=== PATIENT | female | born 1975 | race Caucasian/White ===

== ENCOUNTER 2018-04-16 05:10 | Day surgery (SDC) | payer OTHER ==
[2018-04-04 11:53] VITALS: BMI 22.6
--- NOTE | 2018-04-09 07:39 | HP ---
History & Physical Update - Physical Physical: No Change - Assessment Assessment: No Change - Plan Plan: No Change
--- NOTE | 2018-04-16 13:06 | HP ---
History & Physical Update - History History: No Change - Physical Physical: No Change - Assessment Assessment: No Change - Plan Plan: No Change
[2018-04-16] MEDS ORDERED: ELECTROLYTE-148 SOLN 1,000 ML IV SCH (13:15)
[2018-04-16] MEDS ORDERED: IBUPROFEN 600 MG TABLET (FP) PO PRN (13:15)
[2018-04-16] MEDS ORDERED: IBUPROFEN 800 MG/8 ML IJ IVPB PRN (13:15)
[2018-04-16] MEDS ORDERED: ONDANSETRON 4 MG/2 ML VIAL IVPUSH PRN (13:15)
[2018-04-16] MEDS ORDERED: MIDAZOLAM HCL 2 MG/2 ML SINGLE DOSE VIAL ONE (13:18)
[2018-04-16] MEDS ORDERED: PROPOFOL 20 ML ONE (13:18)
[2018-04-16] MEDS ORDERED: DEXAMETHASONE SOD PHOSPHATE 4 MG/1 ML VIAL ONE (13:20)
[2018-04-16] MEDS ORDERED: LIDOCAINE HCL/PF 2% SDV 5ML VIAL ONE (13:20)
[2018-04-16] MEDS ORDERED: oxyCODONE HCL 5 MG TABLET PO PRN ×2 (14:25)
[2018-04-16] MEDS ORDERED: KETOROLAC TROMETHAMINE 30 MG/1 ML VIAL IVPUSH ONE (14:29)
[2018-04-16] MEDS ORDERED: LACTATED RINGERS SOLUTION 1,000 ML IV SCH (14:30)
--- NOTE | 2018-04-18 15:44 | PATH ---
Surgical Pathology Report Patient Name: RD DICKINSON [facility]. Rec. #: [id number] /Age/Gender: 1975 (Age: 42) / F Account: [id number] Location: [facility] Taken: 04/16/2018 Received: 04/17/2018 Reported: 04/18/2018 Physicians: Sang Trammell M.D. Specimen(s) Received A: ENDOMETRIAL CURETTINGS B: ENDOMETRIAL POLYP Clinical History Menorrhagia, endometrial polyp Final Diagnosis A. ENDOMETRIAL CURETTINGS: FRAGMENTS OF SECRETORY ENDOMETRIUM. ENDOCERVICAL TISSUE WITH SQUAMOUS METAPLASIA. B. ENDOMETRIAL POLYP, EXCISION: FRAGMENTS OF ENDOCERVICAL POLYP. Electronically Signed Jus Forbes M.D. Gross Description A. Received in formalin labeled "endometrial curettings," is a 4.0 x 3.8 x 0.5 cm aggregate of moise-brown soft tissue fragments admixed with blood clot. The formalin is filtered and the specimen is entirely submitted in 4 cassettes. B. Received in formalin labeled "endometrial polyp" is a 2.0 x 1.2 x 0.3 cm. moise, polypoid portion of soft tissue. Also received within the same container is a 1.8 x 1.8 x 0.3 cm. aggregate of miose soft tissue fragments. The specimen is entirely submitted in 2 cassettes as follows: 1-polyp; 2-separate soft tissue fragments. 04/17/2018 saudi04/17/2018
[2018-04-18 18:14] VITALS: BP 136/92; PULSE 94; TEMP 98.6
--- NOTE | 2018-05-30 14:52 | OP ---
DATE OF OPERATION: 04/16/2018 PREOPERATIVE DIAGNOSES: Menometrorrhagia, endometrial polyp. POSTOPERATIVE DIAGNOSES: Menometrorrhagia, endometrial polyp. PROCEDURE: Hysteroscopy, dilatation and curettage, and resection of endometrial polyp. SURGEON: Sang Trammell MD ANESTHESIA: General. ESTIMATED BLOOD LOSS: 50 mL DESCRIPTION OF OPERATION: Patient was taken to the operating room. Under adequate general anesthesia in dorsal lithotomy position, examination under anesthesia revealed the external genitalia to be normal. Vagina was normal. Cervix was clean. No lesion. Uterus was normal size and adnexa no masses were palpable. Then, with the weighted speculum in the vagina, anterior lip of the cervix was grasped with a single-tooth tenaculum. Cervix was gradually dilated with Hegar dilators. Then, the hysteroscope was introduced into the endocervical canal and advanced to the uterine cavity. Both cornual regions were identified. Endometrium appeared to be irregular. There was an endometrial polyp on the mid-uterine wall anteriorly. This polyp was resected, and then, endometrium was curetted. Patient tolerated the procedure well, left the OR in good condition. Monie [id number]
== END 2018-04-16 16:15 | disposition home or self-care (01) ==
LOC: JASU-SURG 05:10
PROVIDERS: ATTEND Obstetrics & Gynecology
PROC: 0UB98ZX Excision of Uterus, Via Natural or Artificial Opening Endoscopic, Diagnostic (ICD-10-PCS; principal; 2018-04-16 12:00)
PROC: 0UDB7ZX Extraction of Endometrium, Via Natural or Artificial Opening, Diagnostic (ICD-10-PCS; 2018-04-16 12:00)
DX: N92.1 Excessive and frequent menstruation with irregular cycle (principal); N84.0 Polyp of corpus uteri
CPT/HCPCS: 84703; 88305-TC; 94760